=== PATIENT | male | born 1970 | race Caucasian/White ===

== ENCOUNTER 2018-01-01 09:17 | Day surgery (SDC) | payer OTHER, BC ==
[~2018-01-01 09:17] MED LIST: SUCCINYLCHOLINE CHLORIDE 100 MG/5 ML SYG IV
[2018-01-01] MEDS ORDERED: FENTAnyl 50 MCG/ML VIAL (11:54)
[2018-01-01] MEDS ORDERED: SUGAMMADEX SODIUM 200 MG/2 ML VIAL IV (11:55)
[2018-01-01] MEDS ORDERED: METOCLOPRAMIDE 10 MG INJ IV (12:00)
[2018-01-01] MEDS ORDERED: DIPHENHYDRAMINE 50 MG INJ IV (12:00)
[2018-01-01] MEDS ORDERED: ALBUTEROL 0.083% (NEB) 2.5 MG/3 ML AMP HHN (12:00)
[2018-01-01] MEDS ORDERED: ONDANSETRON 4 MG INJ IV ×2 (12:00→13:00)
[2018-01-01] MEDS ORDERED: MEPERIDINE 25 MG INJ IV (12:00)
[2018-01-01] MEDS ORDERED: HYDROmorphONE 1 MG/5 ML IV SYRINGE IV ×3 (12:00)
[2018-01-01] MEDS ORDERED: FENTAnyl 50 MCG/ML VIAL IV ×3 (12:00)
[2018-01-01] MEDS ORDERED: PROPOFOL 20 ML (12:09)
[2018-01-01] MEDS ORDERED: ROCURONIUM 50 MG INJ (12:09)
[2018-01-01] MEDS ORDERED: SUCCINYLCHOLINE CHLORIDE 100 MG/5 ML SYG IV (12:09)
[2018-01-01] MEDS ORDERED: CEFAZOLIN 1 GM INJ (12:09)
[2018-01-01] MEDS ORDERED: LIDOCAINE 100 MG SYRINGE (12:09)
[2018-01-01] MEDS: ROPIVACAINE 0.5 % 30 ML VIAL (12:23)
[2018-01-01] MEDS: EPINEPHrine 1 MG/ML 30 ML INJ IRR (12:23)
[2018-01-01] MEDS ORDERED: HYDROCODONE/APAP (5/325) TAB PO (13:00)
[2018-01-01] MEDS ORDERED: morphine 10 MG INJ IV (13:00)
[2018-01-01] MEDS: HYDROCODONE/APAP (5/325) TAB PO (13:54)
== END 2018-01-01 14:33 | disposition home or self-care (01) ==
LOC: SDS 09:17
DX: S83.241D Other tear of medial meniscus, current injury, right knee, subsequent encounter (principal); X58.XXXD Exposure to other specified factors, subsequent encounter; M94.261 Chondromalacia, right knee
CPT/HCPCS: 29881; 86850; 86900; 86901